=== PATIENT | female | born 1985 | race Caucasian/White ===

== ENCOUNTER → 2024-03-22 | Outpatient (CLI) | payer OTHER ==
--- NOTE | 2024-03-22 10:27 | XR ---
EXAMINATION TYPE: XR elbow complete RT DATE OF EXAM: 03/22/2024 COMPARISON: NONE HISTORY: Pain FINDINGS: Three views of the elbow demonstrate no pathologic joint effusion. The osseous structures are intact . There is no acute fracture or dislocation. IMPRESSION: 1. No acute fracture or dislocation. If symptoms persist follow-up study in 7 to 10 days could be ob tained. [facility], , 03/22/2024 10:25 AM
--- NOTE | 2024-03-22 10:28 | XR ---
EXAMINATION TYPE: XR shoulder complete RT DATE OF EXAM: 03/22/2024 COMPARISON: NONE HISTORY: Pain TECHNIQUE: Three views are submitted. FINDINGS: The osseous structures are intact. There is no acute fracture or dislocation. Mild AC joint arthropa thy. IMPRESSION: 1. No acute fracture. If concern for rotator cuff injury, consider correlation with MRI. [facility], , 03/22/2024 10:26 AM
== END | disposition home or self-care (01) ==
LOC: RADXRMAIN 09:59
PROVIDERS: ATTEND Emergency Medicine
DX: S43.401A Unspecified sprain of right shoulder joint, initial encounter

== ENCOUNTER → 2024-03-30 | Outpatient (CLI) | payer OTHER ==
--- NOTE | 2024-03-30 14:40 | XR ---
EXAMINATION TYPE: XR humerus LT DATE OF EXAM: 03/30/2024 CLINICAL HISTORY: pain TECHNIQUE: Frontal and lateral images of the left humerus are obtained. COMPARISON: None. FINDINGS: There is no acute fracture/dislocation evident. The joint spaces appear within normal limi ts. The overlying soft tissue appears unremarkable. IMPRESSION: There is no acute fracture or dislocation. ICD 10 NO FRACTURE, INITIAL EVALUATION [facility], , 03/30/2024 2:37 PM
--- NOTE | 2024-03-30 14:47 | XR ---
EXAMINATION TYPE: XR wrist complete RT DATE OF EXAM: 03/30/2024 2:34 PM CLINICAL INDICATION: Female, 38 years old with history of S13.4XXD SPRAIN LIGAMENT C SPINE S63.501D S 46.912D; [facility] COMPARISON: None TECHNIQUE: XR wrist complete RT; examined in the Frontal, navicular, lateral, and oblique. FINDINGS: No acute osseous pathology, joint dislocation, or joint effusion. No evidence of any soft tissue swelling is seen. IMPRESSION: No acute osseous pathology. [facility], Workstation: [facility], 03/30/2024 2:45 PM
--- NOTE | 2024-03-30 15:00 | CT ---
EXAMINATION TYPE: CT cervical spine wo con CT DLP: 224 mGycm, Automated exposure control for dose reduction was used. DATE OF EXAM: 03/30/2024 2:49 PM COMPARISON: None. CLINICAL INDICATION:Female, 38 years old with history of S13.4XXD SPRAIN LIGAMENT C SPINE S63.501D S4 6.912D; [facility], Pain running from base of skull into shoulders. TECHNIQUE: Axial CT images from the skull base to the inferior aspect of T2 we obtained without intra venous contrast. Coronal and sagittal reformatted images were also reviewed. FINDINGS: Fracture: None. Osseous structures: Unremarkable Vertebral alignment: No spondylolisthesis. Straightening of the cervical spine which may be due to pa tient position versus muscle spasm. Spinal canal/Neural Foramina: No evidence of significant spinal canal narrowing. No evidence for sign ificant neural foraminal stenosis. Neck soft tissues: Prevertebral soft tissues are within normal limits. Other: The airway is patent. The lung apices are clear. IMPRESSION: 1. No evidence of cervical spine fracture. 2. No degenerative disc disease. [facility], , 03/30/2024 2:57 PM
== END | disposition home or self-care (01) ==
LOC: RADCTMAIN 14:14
PROVIDERS: ATTEND Emergency Medicine
DX: S13.4XXD Sprain of ligaments of cervical spine, subsequent encounter (principal); S63.501D Unspecified sprain of right wrist, subsequent encounter; S46.912D Strain of unspecified muscle, fascia and tendon at shoulder and upper arm level, left arm, subsequent encounter
CPT/HCPCS: 72125

== ENCOUNTER → 2024-04-04 | Outpatient (CLI) | payer OTHER ==
--- NOTE | 2024-04-05 08:22 | XR ---
EXAMINATION TYPE: XR lumbar spine 3V DATE OF EXAM: 04/04/2024 Comparison: None Clinical History: 38-year-old female right leg and arm numbness after prior injury to lower back. 533 .5XXD SPRAIN OF LIG OF LUMBAR SPINE Findings: 5 lumbar type vertebral bodies. Vertebral body heights are preserved as are disc interspaces. Alignme nt is maintained. Impression: No specific radiographic abnormality of the lumbar spine. [facility], , 04/05/2024 8:19 AM
== END | disposition home or self-care (01) ==
LOC: RADXRMAIN 15:16
DX: S33 Dislocation and sprain of joints and ligaments of lumbar spine and pelvis (principal)
CPT/HCPCS: 72100

== ENCOUNTER → 2024-05-07 | Outpatient (CLI) | payer BC ==
--- NOTE | 2024-05-08 13:25 | MR ---
EXAMINATION TYPE: MR cervical spine wo/w con DATE OF EXAM: 05/07/2024 6:34 PM COMPARISON: None. CLINICAL INDICATION: Female, 38 years old with history of M48.02 SPINAL STENOSIS, CERVICAL REGION, Ne ck pain since Mar 28, 2024 TECHNIQUE: Multiplanar multiecho imaging on a 3.0 Sinai magnet is performed through the cervical spin e. IV Contrast: 5.5 mL Gadobutrol (None, if empty) FINDINGS: The craniovertebral junction is normal. Vertebral body alignment is normal. Cord maintai ns normal signal throughout its visualized course C7-T1: No focal disc herniation or significant disc bulge is evident. No spinal canal stenosis or n eural foraminal stenosis is present. C6-7: No focal disc herniation or significant disc bulge is evident. No spinal canal stenosis or kem ral foraminal stenosis is present. C5-6: No focal disc herniation or significant disc bulge is evident. No spinal canal stenosis or kem ral foraminal stenosis is present. C4-5: No focal disc herniation or significant disc bulge is evident. No spinal canal stenosis or kem ral foraminal stenosis is present. C3-4: No focal disc herniation or significant disc bulge is evident. No spinal canal stenosis or kem ral foraminal stenosis is present. C2-3: No focal disc herniation or significant disc bulge is evident. No spinal canal stenosis or kem ral foraminal stenosis is present. Following contrast no suspicious enhancement is evident. IMPRESSION: 1. No suspicious acute changes to account for patient's pain 2. Unremarkable pre and postcontrast MRI cervical spine [facility], , 05/08/2024 1:23 PM
== END | disposition home or self-care (01) ==
LOC: RADMRIMAIN 15:37
PROVIDERS: ATTEND Family Medicine
DX: M48.02 Spinal stenosis, cervical region (principal)
CPT/HCPCS: 72156; A9585